=== PATIENT | male | born 1975 | race Two or more races ===

== ENCOUNTER 2025-03-27 08:29 | Inpatient (IN) | payer OTHER ==
[~2025-03-27] VITALS: Ht 180.3 cm; Wt 95.7 kg
[2025-03-27 09:30] LABS: URINE APPEARANCE Clear; URINE BILIRRUBIN Negative (NEGATIVE); URINE BLOOD Negative; URINE COLOR Yellow; URINE GLUCOSE Negative (NEGATIVE); URINE KETONE Negative (NEGATIVE); URINE LEUKOCYTE Negative; URINE NITRATE Negative; URINE PROTEIN Negative (NEGATIVE); URINE UROBILINOGEN 0.2 E.U./dl
[2025-03-27 09:33] LABS: BASO % 0.4 % (0.1-1.2); EOS # 0.28 (0.04-0.54); EOS % 2.3 % (0.7-7.0); LYMPH # 3.44 (1.18-3.74); LYMPH % 28.3 % (19.3-53.1); MEAN PLATELET VOLUME 9.10 fl (9.4-12.4); MONO # 0.53 (0.24-0.82); MONO % 4.4 % (4.7-12.5); NEUT # 7.84 (1.56-6.13); NEUT % 64.4 % (34.0-71.1); RED CELL DISTRIBUTION WIDTH 13.5 % (11.6-14.4)
[2025-03-27] MEDS ORDERED: METFORMIN HCL500 M3 PO (09:36)
[2025-03-27] MEDS ORDERED: RESTORIL30 M1 PO (09:37)
[2025-03-27] MEDS ORDERED: VISTARIL50 MG/ML PO (09:37)
[2025-03-27 09:46] VITALS: BP 123/80
[2025-03-27 09:52] LABS: INR 1.0
[2025-03-27 09:58] LABS: URINE BACTERIA 1.1 uL (0.0-1933); URINE CAST 0.14 uL (0.0-1.40); URINE EPITHELIAL CELLS 0.4 uL (0.0-38.8); URINE RBC 0.8 uL (0.0-20.8); URINE WBC 1.0 uL (0.0-23.2)
[2025-03-27 10:25] LABS: COVID-19 AG NEGATIVE (NEGATIVE)
[2025-03-27 10:55] LABS: BUN CREA RATIO 9.0 (7.0-25.0); CREATININE SERUM 0.82 mg/dL (0.70-1.30); GFR 99.05; GLUCOSE FASTING 140.0 mg/dL (65-100); OSMOLALITY SERUM 283.0 MOSM/KG (275-295)
[2025-03-27 11:52] LABS: RH POSITIVE
[2025-04-01] MEDS ORDERED: CEFAZOLIN SODIUM 1,000 MG VIAL IV ONE (09:45)
[2025-04-01] MEDS ORDERED: HEMOSTATIC MATRIX 1 KIT KIT TOP ONE (10:00)
[2025-04-01] MEDS ORDERED: BUPIVACAINE HCL 30 ML VIAL IJ ONE (10:00)
[2025-04-01] MEDS ORDERED: SURGIFLO APPLICATOR 1 EACH APPL TOP ONE (10:00)
[2025-04-01] MEDS ORDERED: ENOXAPARIN SODIUM 40 MG/0.4 ML SYRINGE SUBCUTANEO ONE (10:00)
[2025-04-01] MEDS ORDERED: MORPHINE SULFATE 4 MG/ML CARTRIDGE IV PRN (11:15)
[2025-04-01] MEDS ORDERED: ONDANSETRON HCL 2 MG/ML VIAL IV PRN (11:15)
[2025-04-01] MEDS ORDERED: RINGERS SOLUTION,LACTATED 1,000 ML IV SCH (11:15)
[2025-04-01] MEDS ORDERED: DEXTROSE 50 % IN WATER 0.5 G/ML VIAL IV PRN (11:15)
[2025-04-01] MEDS ORDERED: INSULIN LISPRO 1,000 UNIT/10 ML UNITS SUBCUTANEO PRN (11:15)
[2025-04-01] MEDS ORDERED: SUGAMMADEX SODIUM 200 MG/2 ML VIAL IV ONE (11:45)
[2025-04-01] MEDS ORDERED: MORPHINE SULFATE 4 MG/ML VIAL IV ONE ×2 (11:45→13:05)
[2025-04-01] MEDS ORDERED: ONDANSETRON HCL 2 MG/ML VIAL IV ONE (13:10)
[2025-04-01 13:50] VITALS: BP 120/63; O2SAT 95
[2025-04-01 14:15] VITALS: BP 120/63; O2SAT 95
[2025-04-01 16:00] VITALS: BP 166/93; O2SAT 96
[2025-04-01] MEDS ORDERED: GABAPENTIN 300 MG CAPSULE PO SCH (17:00)
[2025-04-01] MEDS ORDERED: POLYETHYLENE GLYCOL 3350 17 GM BLIST.PACK PO SCH (17:00)
[2025-04-01] MEDS ORDERED: TEMAZEPAM 15 MG CAPSULE PO SCH (21:00)
[2025-04-01] MEDS ORDERED: CEFAZOLIN SODIUM 1,000 MG VIAL IV SCH (21:00)
[2025-04-01] MEDS ORDERED: FAMOTIDINE/PF 20 MG/2 ML VIAL IV SCH (21:00)
[2025-04-02 01:41] VITALS: BP 103/57; O2SAT 94
[2025-04-02 06:16] LABS: BASO % 0.3 % (0.1-1.2); EOS # 0.09 (0.04-0.54); EOS % 0.7 % (0.7-7.0); LYMPH # 3.35 (1.18-3.74); LYMPH % 26.9 % (19.3-53.1); MEAN PLATELET VOLUME 9.30 fl (9.4-12.4); MONO # 0.94 (0.24-0.82); MONO % 7.6 % (4.7-12.5); NEUT # 7.96 (1.56-6.13); NEUT % 64.0 % (34.0-71.1); RED CELL DISTRIBUTION WIDTH 13.6 % (11.6-14.4)
[2025-04-02 06:38] LABS: BUN CREA RATIO 9.0 (7.0-25.0); CREATININE SERUM 0.81 mg/dL (0.70-1.30); GFR 100.46; GLUCOSE FASTING 151.0 mg/dL (65-100); OSMOLALITY SERUM 280.0 MOSM/KG (275-295)
[2025-04-02] MEDS ORDERED: ENOXAPARIN SODIUM 40 MG/0.4 ML SYRINGE SUBCUTANEO SCH (09:00)
== END 2025-04-02 10:05 | disposition home or self-care (01) | DRG 708 ==
LOC: SURG 04-01 07:00 → O/R 04-01 08:26 → SURG 04-01 08:45
PROVIDERS: ADMIT Urology; ATTEND Urology
PROC: 8E0W4CZ Robotic Assisted Procedure of Trunk Region, Percutaneous Endoscopic Approach (ICD-10-PCS; 2025-04-01)
PROC: 0VT04ZZ Resection of Prostate, Percutaneous Endoscopic Approach (ICD-10-PCS; principal; 2025-04-01 07:00)
DX: C61 Malignant neoplasm of prostate (principal)
CPT/HCPCS: 55866; S2900